=== PATIENT | male | born 1985 | race Caucasian/White ===

== ENCOUNTER 2023-11-22 13:41 | Emergency (ER) | payer OTHER ==
[~2023-11-22] VITALS: Ht 193 cm; Wt 165.6 kg
[2023-11-22 14:31] LABS: BASOPHILS ABSOLUTE AUTO 0.06 K/mm3 (0.00-0.23); BASOPHILS PERCENT AUTO 1 % (0-2); EOSINOPHILS PERCENT AUTO 3 % (0-6); Hematocrit 37.2 % (37.0-53.0); Hemoglobin 13.7 g/dL (13.5-17.5); IMMATURE GRAN ABSOLUTE AUTO 0.01 K/mm3 (0.00-0.10); IMMATURE GRAN PERCENT AUTO 0 % (0-1); LYMPHOCYTES ABSOLUTE AUTO 1.63 K/mm3 (0.84-5.20); LYMPHOCYTES PERCENT AUTO 28 % (21-46); MONOCYTES ABSOLUTE AUTO 0.68 K/mm3 (0.16-1.47); MONOCYTES PERCENT AUTO 12 % (4-13); Mean Corpuscular HGB 36.1 pg (26.0-34.0); Mean Corpuscular HGB Conc 36.8 g/dL (31.5-36.5); Mean Corpuscular Volume 98 fL (80-100); Mean Platelet Volume 12.1 fL (9.1-12.4); NEUTROPHILS ABSOLUTE AUTO 3.33 K/mm3 (1.96-9.15); NEUTROPHILS PERCENT AUTO 56 % (41-73); Platelet Count 115 K/mm3 (150-400); RDW Coefficient Variation 13.6 % (11.7-14.2); RDW Standard Deviation 49.2 fL (35.1-46.3); White Blood Cell Count 5.91 K/mm3 (4.00-11.30)
[2023-11-22 14:51] LABS: Albumin, Blood 3.7 g/dL (3.4-5.0); Albumin/Globulin Ratio 0.9 (0.8-1.8); Bilirubin, Total 1.1 mg/dL (0.1-1.0); Bun/Creatinine Ratio 18.3 (12.0-20.0); Calcium, Blood 9.2 mg/dL (8.5-10.1); Creatinine, Blood 0.76 mg/dL (0.60-1.20); Globulin, Blood 3.9 g/dL (2.2-4.0); Potassium, Blood 3.5 mmol/L (3.5-5.5); Total Protein, Blood 7.6 g/dL (6.4-8.2)
[2023-11-22] MEDS ORDERED: HyDROXyzine HCl 25 MG Tab PO ONE (15:55)
[2023-11-22] MEDS ORDERED: Ketorolac Tromethamine 30mg Vial IV ONE (15:55)
== END 2023-11-22 18:03 | disposition home or self-care (01) ==
LOC: ER 13:41
PROVIDERS: Emergency Medicine
DX: R07.89 Other chest pain (principal); F41.1 Generalized anxiety disorder; I25.2 Old myocardial infarction
CPT/HCPCS: 71046; 80053; 82947; 84484; 85025; 93005; 93010; 99285-25; A9270; J1885

== ENCOUNTER 2023-12-01 16:57 | Emergency (ER) | payer OTHER ==
[~2023-12-01] VITALS: Ht 193 cm; Wt 165.6 kg
[2023-12-01] MEDS ORDERED: AMOCLA875 PO (17:36)
[2023-12-01] MEDS ORDERED: Amoxicillin/Clavulanate K 875 MG Tab PO ONE (17:40)
== END 2023-12-01 18:02 | disposition home or self-care (01) ==
LOC: ER 16:57
DX: K04.7 Periapical abscess without sinus (principal); Z87.891 Personal history of nicotine dependence
CPT/HCPCS: 99282; A9270